=== PATIENT | female | born 1995 | race Caucasian/White ===

== ENCOUNTER 2024-02-23 17:27 | Emergency (ER) | payer OTHER ==
[~2024-02-23] VITALS: Ht 162.6 cm; Wt 77.1 kg
[2024-02-23] MEDS ORDERED: APLENZIN174 MG (17:42)
[2024-02-23] MEDS ORDERED: WELLBUTRIN SR150 MG (17:42)
[2024-02-23] MEDS ORDERED: LEXAPRO5 MG (17:42)
[2024-02-23] MEDS ORDERED: LEVOTHYROXINE50 MC1 (17:42)
[2024-02-23] MEDS ORDERED: FAMOtidine 10 MG/ML (4ML VIAL) IV ONE (18:15)
[2024-02-23] MEDS ORDERED: 0.9 % SODIUM CHLORIDE 1,000 ML IV ONE (18:15)
[2024-02-23] MEDS ORDERED: LEVALBUTEROL HCL 1.25 MG/3 ML SOLUTION IH ONE (18:15)
[2024-02-23] MEDS ORDERED: PIPERACILLIN/TAZOBACTAM SODIUM 3.375 GM VIAL IV ONE (18:15)
[2024-02-23] MEDS ORDERED: ONDANSETRON HCL 2 MG/ML VIAL IV ONE ×2 (18:15→22:15)
[2024-02-23 19:03] LABS: ABG PH 7.418 (7.35-7.45); ABG PO2 83.2 mmHg (80-100); ABG pCO2 38.7 mmHg (35-45); BASE EXCESS 0.1 mmol/l; SaO2 96.3 %
[2024-02-23 19:04] LABS: BICARBONATE 24.5 mmol/l (23-25); Tco2 25.6 mmol/l; allen test SATISFACTORY; o2 21 %; puncture site RADIAL RIGHT
[2024-02-23 20:04] LABS: URINE APPEARANCE Cloudy; URINE BILIRRUBIN Negative (NEGATIVE); URINE BLOOD Negative; URINE COLOR Yellow; URINE GLUCOSE Negative (NEGATIVE); URINE KETONE Negative (NEGATIVE); URINE LEUKOCYTE Negative; URINE NITRATE Negative; URINE PROTEIN Negative (NEGATIVE); URINE UROBILINOGEN 0.2 E.U./dl
[2024-02-23 20:05] LABS: HEMATOCRIT 37.5 % (36.0-45.00); HEMOGLOBIN 12.5 g/dL (12.0-15.00); MEAN CELL VOLUME 78.3 fL (80.00-100.00); MEAN CORPUSCULAR HEMOGLOBIN 26.1 pg (27.00-32.0); MEAN CORPUSCULAR HGB CONC 33.4 g/dl (32.0-36.0); PLATELET COUNT 284 K/uL (150-450); RED BLOOD COUNT 4.79 M/uL (4.00-6.00); RED CELL DISTRIBUTION WIDTH 13.3 % (11.5-14.5)
[2024-02-23 20:08] LABS: URINE BACTERIA 1998.6 uL (0.0-1933); URINE EPITHELIAL CELLS 85.8 uL (0.0-38.8); URINE RBC 8.1 uL (0.0-20.8); URINE WBC 4.5 uL (0.0-23.2)
[2024-02-23 20:43] LABS: ALBUMIN 4.1 gm/dL (3.4-5.0); BILIRUBIN TOTAL 0.32 mg/dL (0.3-1.2); CREATININE SERUM 0.99 mg/dL (0.55-1.02); GFR 66.31; GLOBULINA 3.3 G/DL (2.4-3.5); POTASSIUM 3.43 mEq/L (3.5-5.1); TOTAL PROTEIN 7.4 gm/dL (6.4-8.2)
[2024-02-23] MEDS ORDERED: PEPCID AC20 MG PO (22:15)
[2024-02-23] MEDS ORDERED: ZOFRAN8 MG PO (22:15)
== END 2024-02-23 22:31 | disposition home or self-care (01) ==
LOC: ER 17:30
PROVIDERS: General Practice
DX: R11.10 Vomiting, unspecified (principal); R41.82 Altered mental status, unspecified; E03.8 Other specified hypothyroidism
CPT/HCPCS: 36415; 70460; 71045; 82803; 93005; 94640; Q9965